=== PATIENT | female | born 1980 | race Caucasian/White ===

== ENCOUNTER → 2023-08-11 12:21 | Outpatient (REF) | payer BC, SELFPAY | LOC: WDC 12:21 | PROVIDERS: ATTENDING PHYSICIAN Family Medicine | DX: Z12.31 Encounter for screening mammogram for malignant neoplasm of breast (principal) | CPT/HCPCS: 77063; 77067 ==

== ENCOUNTER → 2024-08-13 12:58 | Outpatient (REF) | payer BC, SELFPAY | LOC: WDC 12:58 | PROVIDERS: ATTENDING PHYSICIAN Family Medicine | DX: Z12.31 Encounter for screening mammogram for malignant neoplasm of breast (principal) | CPT/HCPCS: 77063; 77067 ==